=== PATIENT | male | born 1960 | race Caucasian/White ===

== ENCOUNTER 2017-08-12 19:42 | Inpatient (IN) | payer BC ==
[~2017-08-12] VITALS: Ht 175.3 cm; Wt 94.3 kg
--- NOTE | ~2017-08-12 | EKG ---
[address] [employer] [place] [address] ELECTROCARDIOGRAM REPORT Name: ANGELI ARANGO Room #: 206-P ADM IN M.R.#: [id number] Admission: 08/12/17 Attend Phys: Dominic Cárdenas MD Discharge: Date of : 64 Report #: [id number] THIS REPORT FOR: //name// [facility] ED Test Date: 2017-08-12 Test Time: 19:48:00 Pat Name: ANGELI ARANGO Department: Room: Gender: M [employer]: JAS : 1960 Requested By: Bonnie Lee Order Number: [id number] MD: Chirag Hopson Measurements Intervals [place] Rate: 67 P: 13 OK: 144 QRS: -19 QRSD: 89 T: 26 QT: 385 QTc: 407 Interpretive Statements Sinus rhythm Ventricular premature complex Borderline left axis deviation Minimal ST depression, lateral leads Baseline wander in lead(s) V4 Compared to ECG 09/13/2015 23:21:16 Ventricular premature complex(es) now present ST (T wave) deviation now present T-wave abnormality no longer present Possible ischemia no longer present Electronically Signed On 08-13-2017 8:20:31 CDT by Chirag Hopson [email or web address] <ELECTRONICALLY SIGNED> By: Chirag Hopson MD 08/13/17819 47 47 Chirag Hopson MD /EPI
--- NOTE | ~2017-08-12 | 2DMMODE ---
[facility] [address] [facility] [place] [address] 2 D/M-MODE ECHOCARDIOGRAM Name: ANGELI ARANGO Room #: 206-P [facility] IN .R.#: [id number] Admission: 08/12/17 Attend Phys: Dominic Cárdenas MD Discharge: Date of : 64 Date of Service: 08/13/17 1147 Report #: [id number] THIS REPORT FOR: //name// APPROVED REPORT Study performed: 08/13/2017 08:21:48 EXAM: Comprehensive 2D, Doppler, and color-flow Echocardiogram Patient Location: Echo lab Room #: 206 Status: routine BSA: 2.10 HR: 54 bpm BP: 109/72 mmHg Rhythm: NSR Other Information Study Quality: Fair Indications Syncope Chest Pain Hx: HTN, DM, family history heart disease 2D Dimensions RVDd: 39.10 mm LVEF(%): 57.08 (>50%) IVSd: 11.06 (7-11mm) LVOT Diam: 21.99 (18-24mm) LVDd: 27.16 mm PWd: 11.72 (7-11mm) Ascending Ao: 32.26 (22-36mm) LVDs: 19.39 (25-40mm) Aortic Root: 32.45 mm Berger's LVEF: 57.08 % Volumes Left Atrial Volume (Systole) Single Plane 4CH: 30.90 mL Single Plane 2CH: 38.10 mL LA ESV Index: 18.00 mL/m2 Aortic Valve AoV Peak Napoleon.: 1.03 m/s AO Peak Gr.: 4.23 mmHg LVOT Max P.46 mmHg LVOT Max V: 0.78 m/s MICHELLE Vmax: 2.89 cm2 Mitral Valve [facility] [address] [place] [address] 2 D/M-MODE ECHOCARDIOGRAM Name: JASON ARANGOITH Room #: 206-P [facility] IN .R.#: [id number] Admission: 08/12/17 Attend Phys: Dominic Cárdenas MD Discharge: Date of : 64 Date of Service: 08/13/17 1147 Report #: [id number] E/A Ratio: 0.8 MV Decel. Time: 172.86 ms MV E Max Napoleon.: 0.58 m/s MV A Napoleon.: 0.75 m/s MV PHT: 50.13 ms IVRT: 115.34 ms Pulmonary Valve PV Peak Napoleon.: 0.89 m/s PV Peak Gr.: 3.16 mmHg Pulmonary Vein P Vein S: 0.56 m/s P Vein A: 0.30 m/s P Vein D: 0.33 m/s P Vein A Dur.: 120.0 msec P Vein S/D Ratio: 1.70 Tricuspid Valve TR Peak Napoleon.: 2.23 m/s RAP Estimate: 5.00 mmHg TR Peak Gr.: 19.90 mmHg PA Pressure: 25.00 mmHg Left Ventricle The left ventricle is normal size. There is normal LV segmental wall motion. There is normal left ventricular wall thickness. Left ventricular systolic function is normal. LVEF is 55-60%. Grade I - abnormal relaxation pattern. Right Ventricle Right ventricle is at the upper limits of normal. The right ventricular systolic function is normal. Atria The left atrium size is normal. Right atrium is dilated. Aortic Valve Aortic valve is trileaflet, mild aortic valve sclerosis. No aortic regurgitation is present. There is no aortic valvular stenosis. Mitral Valve The mitral valve is normal in structure. Trace mitral regurgitation. No evidence of mitral valve stenosis. Tricuspid Valve The tricuspid valve is normal in structure. Mild tricuspid regurgitation. Estimated PAP 25 mmHg. [facility] [address] [address] 2 D/M-MODE ECHOCARDIOGRAM Name: ANGELI ARANGO Room #: 206-P [facility] IN ..#: [id number] Admission: 08/12/17 Attend Phys: Dominic Cárdenas MD Discharge: Date of : 64 Date of Service: 08/13/17 1147 Report #: [id number] Pulmonic Valve The pulmonary valve is normal in structure. Trace pulmonic regurgitation. Great Vessels The aortic root is normal in size. The ascending aorta is normal in size. The inferior vena cava is not well visualized, but appears grossly normal in structure. Pericardium There is no pericardial effusion. There is no pleural effusion. <Conclusion> Left ventricular systolic function is normal. There is normal LV segmental wall motion. LVEF is 55-60%. Grade I diastolic dysfunction Aortic valve is trileaflet, mild aortic valve sclerosis. No aortic valvular stenosis or insufficiency The mitral valve is normal in structure. Trace mitral regurgitation. Mild tricuspid regurgitation. Estimated pulmonary artery pressure of 25 mmHg. There is no pericardial effusion. <ELECTRONICALLY SIGNED> By: Thiago Campos MD, FACC 08/13/17 1147 1147 1147 Thiago Campos MD, FACC /INF
[~2017-08-12 19:42] MED LIST: B & O SUPPRETT1 EAC1 RECTAL; ELIQUIS5 MG PO; GLYBURIDE 5 MG T5 M1 PO; HYOSCYAMINE0.125 M1 SUBLING; LEVAQUIN 500 M500 M2 PO; LISINOPRIL20 MG PO; METFORMIN HCL500 MG PO; NOHOMEMEDICATIONS; NORCO 5-325 TA1 EACH PO; ONDANSETRON HCL4 M2 SUBLING; TRAMADOL 50 MG50 MG PO; TYLENOL325 MG PO
[2017-08-12 19:46] VITALS: BP 149/103
[2017-08-12] MEDS ORDERED: LIPITOR80 MG PO (21:06)
[2017-08-12 21:20] LABS: ABSOLUTE NEUTROPHILS 6.6 thou/uL (1.4-8.2); BASOPHILS 0.7 % (0.0-2.0); EOSINOPHILS 2.4 % (0.0-3.0); HEMATOCRIT 46.3 % (42.0-52.0); HEMOGLOBIN 15.6 gm/dL (14.0-18.0); LYMPHOCYTES 25.8 % (24.0-44.0); MCH 30.9 pg (26.0-34.0); MCHC 33.7 g/dL (28.0-37.0); MCV 91.6 fL (80.0-100.0); MONOCYTES 8.5 % (1.0-8.0); PLATELET COUNT 225 thou/uL (150-400); POLYS 62.6 % (36.0-66.0); RBC 5.05 mil/uL (4.50-6.00); RDW 13.6 % (10.5-14.5); WBC 10.6 thou/uL (4.0-11.0)
[2017-08-12 21:24] LABS: ANION GAP 5 mmol/L (7-16); BUN 17 mg/dL (7-18); CALCIUM 9.4 mg/dL (8.5-10.1); CHLORIDE 104 mmol/L (98-107); CO2 27 mmol/L (21-32); CREATININE 1.6 mg/dL (0.7-1.3); GLUCOSE 185 mg/dL (74-106); POTASSIUM 4.4 mmol/L (3.5-5.1); SODIUM 136 mmol/L (136-145)
[2017-08-12 21:32] LABS: TROPONIN-I < 0.04 ng/mL (<0.06)
[2017-08-12 23:45] VITALS: BP 111/56
[2017-08-13 00:17] VITALS: BP 109/73
[2017-08-13 01:44] LABS: URINE BILIRUBIN NEGATIVE (Negative); URINE BLOOD 2+ (Negative); URINE CLARITY CLEAR; URINE COLOR YELLOW; URINE GLUCOSE-RANDOM* NEGATIVE (Negative); URINE KETONES TRACE (Negative); URINE LEUKOCYTES-REFLEX NEGATIVE (Negative); URINE NITRITE-REFLEX NEGATIVE (Negative); URINE PROTEIN (DIPSTICK) NEGATIVE (Negative); URINE SPECIFIC GRAVITY 1.025 (1.005-1.035); URINE UROBILINOGEN 0.2 E.U./dl (0.2-1.0)
[2017-08-13 01:51] LABS: CASTS None Seen /LPF (None Seen); MUCUS 0-3 Light strn/LPF (None Seen); SQUAMOUS 0-3 Few /LPF (0-3); URIC ACID CRYSTALS 4-10 Moderate /LPF (None Seen); URINE WBC-REFLEX None Seen /HPF (0-5)
[2017-08-13 01:52] LABS: BACTERIA-REFLEX 1-9 Few /HPF (None Seen); CRYSTALS None Seen /LPF (None Seen); URINE RBC 3-10 Few /HPF (0-2)
[2017-08-13 04:00] VITALS: BP 109/72
[2017-08-13 05:33] LABS: ANION GAP 7 mmol/L (7-16); BUN 17 mg/dL (7-18); CALCIUM 8.4 mg/dL (8.5-10.1); CHLORIDE 106 mmol/L (98-107); CO2 27 mmol/L (21-32); CREATININE 1.2 mg/dL (0.7-1.3); GLUCOSE 156 mg/dL (74-106); POTASSIUM 4.2 mmol/L (3.5-5.1); SODIUM 140 mmol/L (136-145); TROPONIN-I < 0.04 ng/mL (<0.06)
[2017-08-13 06:24] LABS: FOLIC ACID 15.6 ng/mL (8.6-58.9); TSH 5.957 uIU/mL (0.358-3.740)
[2017-08-13 07:58] VITALS: BP 118/67
[2017-08-13] MEDS ORDERED: LISINOPRIL20 MG PO (11:38)
[2017-08-13 11:51] VITALS: BP 115/77
[2017-08-13] MEDS ORDERED: JARDIANCE10 MG PO (12:26)
[2017-08-13 13:33] VITALS: BP 115/77
== END 2017-08-13 15:30 | disposition home or self-care (01) | DRG 684 ==
LOC: ER 19:42 → EROBS 22:49 → 2N 22:49
PROVIDERS: Emergency Medicine; Nurse Practitioner Family
DX: N17.9 Acute kidney failure, unspecified (principal); R07.89 Other chest pain; E11.9 Type 2 diabetes mellitus without complications; I10 Essential (primary) hypertension; E78.5 Hyperlipidemia, unspecified; N20.0 Calculus of kidney; Z86.718 Personal history of other venous thrombosis and embolism; Z86.711 Personal history of pulmonary embolism; Z82.49 Family history of ischemic heart disease and other diseases of the circulatory system; Z83.3 Family history of diabetes mellitus; Z84.1 Family history of disorders of kidney and ureter; Z82.3 Family history of stroke; Z88.6 Allergy status to analgesic agent; Z88.8 Allergy status to other drugs, medicaments and biological substances; Z79.82 Long term (current) use of aspirin; Z79.899 Other long term (current) drug therapy
CPT/HCPCS: 10081

== ENCOUNTER 2018-11-23 15:27 | Emergency (ER) | payer BC ==
[~2018-11-23] VITALS: Ht 175.3 cm; Wt 86.2 kg
[~2018-11-23 15:27] MED LIST changes: +JARDIANCE10 MG PO; +LIPITOR80 MG PO
[2018-11-23] MEDS ORDERED: NORTRIPTYLINE H25 M3 PO (15:31)
[2018-11-23] MEDS ORDERED: GLUCOPHAGE XR500 MG PO (15:32)
[2018-11-23 19:10] LABS: HEMOGLOBIN 15.5 gm/dL (14.0-18.0); MCH 30.6 pg (26.0-34.0)
[2018-11-23 19:11] LABS: ABSOLUTE NEUTROPHILS 7.6 thou/uL (1.4-8.2); BASOPHILS 0.6 % (0.0-2.0); EOSINOPHILS 0.6 % (0.0-3.0); HEMATOCRIT 45.4 % (42.0-52.0); LYMPHOCYTES 21.2 % (24.0-44.0); MCHC 34.1 g/dL (28.0-37.0); MCV 89.6 fL (80.0-100.0); MONOCYTES 5.1 % (1.0-8.0); PLATELET COUNT 222 thou/uL (150-400); POLYS 72.5 % (36.0-66.0); RBC 5.06 mil/uL (4.50-6.00); RDW 13.3 % (10.5-14.5); WBC 10.5 thou/uL (4.0-11.0)
[2018-11-23 19:19] LABS: CALCIUM 9.3 mg/dL (8.5-10.1); CREATININE 1.3 mg/dL (0.7-1.3); POTASSIUM 3.9 mmol/L (3.5-5.1)
[2018-11-23 19:25] LABS: ALBUMIN 3.9 g/dL (3.4-5.0); TOTAL BILIRUBIN 0.6 mg/dL (<0.1-1.0); TOTAL PROTEIN 7.4 g/dL (6.4-8.2)
[2018-11-23 22:36] VITALS: BP 127/76
== END 2018-11-23 22:37 | disposition short-term general hospital (02) ==
LOC: ER 15:27
PROVIDERS: Physician Assistant
DX: D43.4 Neoplasm of uncertain behavior of spinal cord (principal); R19.07 Generalized intra-abdominal and pelvic swelling, mass and lump; I10 Essential (primary) hypertension; E11.9 Type 2 diabetes mellitus without complications; Z85.53 Personal history of malignant neoplasm of renal pelvis; Z88.5 Allergy status to narcotic agent; Z88.8 Allergy status to other drugs, medicaments and biological substances; Z86.718 Personal history of other venous thrombosis and embolism; Z90.5 Acquired absence of kidney; Z87.442 Personal history of urinary calculi